=== PATIENT | male | born 1970 | race African-American/Black ===

== ENCOUNTER → 2019-05-14 | Outpatient (CLI) | payer OTHER | LOC: YHH 12:23 ==

== ENCOUNTER 2020-03-14 14:07 | Emergency (ER) | payer OTHER ==
[2020-03-14 14:14] VITALS: BP 110/75; PULSE 84; BMI 22.0
== END 2020-03-14 14:54 | disposition home or self-care (01) ==
LOC: JERFT 14:07
DX: S62.616A Displaced fracture of proximal phalanx of right little finger, initial encounter for closed fracture (principal)
CPT/HCPCS: 99283-25

== ENCOUNTER 2023-11-22 10:47 | Inpatient (IN) | payer OTHER ==
[2023-11-22] MEDS ORDERED: ACETAMINOPHEN 500 MG TABLET (FP) ONE ×2 (11:57→18:03)
[2023-11-22 12:32] LABS: BASO % 0.1 % (0-2.0); EOS % 0.1 % (0-4.5); HEMATOCRIT 40.7 % (35.4-49); HEMOGLOBIN 14.1 GM/dL (11.7-16.9); LYMPH % 6.6 % (8-40); MCH 31.1 pg (25.7-33.7); MCHC 34.5 g/dl (32.0-35.9); MEAN CELL VOLUME 90.2 fl (80-96); MONO % 12.2 % (3.8-10.2); PLATELET COUNT 268 10^3/uL (134-434); RBC 4.52 M/mm3 (4.00-5.60); RDW 12.9 % (11.9-15.9)
[2023-11-22] MEDS: SODIUM CHLORIDE 0.9% 500 ML INFUS.BAG IV ONE (12:32)
[2023-11-22] MEDS: ACETAMINOPHEN 500 MG TABLET (FP) PO ONE (12:32)
[2023-11-22 12:47] LABS: POTASSIUM 3.1 mmol/L (3.5-5.1)
[2023-11-22 12:52] LABS: CALCIUM 8.7 mg/dL (8.5-10.1)
[2023-11-22 12:53] LABS: ALBUMIN 2.8 g/dl (3.4-5.0); BLOOD UREA NITROGEN 10.4 mg/dL (7-18)
[2023-11-22 12:55] LABS: TOT PROT 7.4 g/dl (6.4-8.2)
[2023-11-22 12:56] LABS: CREATININE 0.8 mg/dL (0.55-1.3)
[2023-11-22 12:57] LABS: BILIRUBIN,TOTAL 1.1 mg/dL (0.2-1)
[2023-11-22] MEDS ORDERED: CEFTRIAXONE 1 GM/50 ML BAG ONE (14:23)
[2023-11-22] MEDS ORDERED: AZITHROMYCIN IVPB 500 MG/250 ML BAG IVPB ONE (14:23)
[2023-11-22] MEDS: CEFTRIAXONE 1,000 MG in DEXTROSE 5%-WATER - 50 ML IVPB ONE (14:30)
[2023-11-22] MEDS: SODIUM CHLORIDE 1,000 ML IV SCH (14:30)
[2023-11-22] MEDS: AZITHROMYCIN IVPB 500 MG in DEXTROSE 5%-WATER - 250 ML IVPB ONE (14:31)
[2023-11-22 14:40] LABS: EPI CELLS >36 /uL (0-25.1); HYALINE CASTS 3 /uL (0-3.1); URINE APPEARANCE CLEAR; URINE BACTERIA 8 /uL (0-1359); URINE BILIRUBIN 1+ (NEGATIVE); URINE COLOR DK YELLOW; URINE GLUCOSE (UA) NEGATIVE (NEGATIVE); URINE KETONE 2+ (NEGATIVE); URINE LEUK ESTERASE TRACE (NEGATIVE); URINE NITRITE NEGATIVE (NEGATIVE); URINE PROTEIN 3+ (NEGATIVE); URINE RBC 28 /uL (0-23.9); URINE WBC 31 /uL (0-25.8)
[2023-11-22] MEDS: POTASSIUM CHLORIDE ORAL LIQUID 20 MEQ/15 ML PO ONE (15:39)
[2023-11-22] MEDS ORDERED: POTASSIUM CHLORIDE ORAL LIQUID 20 MEQ/15 ML ONE (15:39)
[2023-11-22] MEDS ORDERED: SULFAMETHOXAZOLE/TRIMETHOPRIM 800MG/160MG D.S. TABLET ONE (17:45)
[2023-11-22] MEDS ORDERED: methylPREDNISolone NA SUCC 40 MG/1 ML VIAL ONE ×2 (17:46→22:37)
[2023-11-22] MEDS: ACETAMINOPHEN 500 MG TABLET (FP) PO PRN (18:04)
[2023-11-22] MEDS: methylPREDNISolone NA SUCC 40 MG/1 ML VIAL IVPUSH SCH (18:04)
[2023-11-22] MEDS: TRIMETHOPRIM IVPB SCH (18:41)
[2023-11-22] MEDS: SULFAMETHOXAZOLE IVPB SCH (18:41)
[2023-11-22] MEDS: WATER IVPB SCH (18:41)
[2023-11-22] MEDS: DEXTROSE 5% IVPB SCH (18:41)
[2023-11-22] MEDS: SULFAMETHOXAZOLE/TRIMETHOPRIM 800MG/160MG D.S. TABLET PO SCH (22:53)
[2023-11-22] MEDS: SULFAMETHOXAZOLE 80 MG/TRIMETHOPRIM 16 MG/ML VIAL IVPB SCH (22:53)
[2023-11-23 07:10] LABS: BASO % 0.1 % (0-2.0); HEMATOCRIT 37.4 % (35.4-49); HEMOGLOBIN 12.7 GM/dL (11.7-16.9); LYMPH % 4.9 % (8-40); MCH 31.1 pg (25.7-33.7); MEAN CELL VOLUME 91.3 fl (80-96); MEAN PLT VOLUME 9.2 fl (7.5-11.1); PLATELET COUNT 294 10^3/uL (134-434); RBC 4.09 M/mm3 (4.00-5.60); RDW 12.5 % (11.9-15.9); WHITE BLOOD COUNT 8.8 K/mm3 (4.0-10.0)
[2023-11-23 07:51] LABS: POTASSIUM 3.4 mmol/L (3.5-5.1)
[2023-11-23 07:55] LABS: CALCIUM 8.2 mg/dL (8.5-10.1)
[2023-11-23 07:58] LABS: CREATININE 0.8 mg/dL (0.55-1.3)
[2023-11-23 08:00] LABS: BILIRUBIN,TOTAL 0.4 mg/dL (0.2-1); PHOSPHOROUS 1.7 mg/dL (2.5-4.9)
[2023-11-23 08:05] LABS: BLOOD UREA NITROGEN 7.8 mg/dL (7-18)
[2023-11-23 08:07] LABS: ALBUMIN 2.5 g/dl (3.4-5.0); MAGNESIUM 2.2 mg/dL (1.8-2.4)
[2023-11-23 08:14] LABS: TOT PROT 6.9 g/dl (6.4-8.2)
[2023-11-23 08:26] LABS: INR 1.17 (0.83-1.09); PROTHROMBIN TIME (PATIENT) 13.6 SEC (9.7-13.0)
[2023-11-23] MEDS ORDERED: ENOXAPARIN NA (PORCINE) 40 MG/0.4 ML DISP.SYRIN SQ ONE (09:40)
[2023-11-23] MEDS ORDERED: CEFTRIAXONE 1 GM/50 ML BAG ONE (09:40)
[2023-11-23] MEDS ORDERED: methylPREDNISolone NA SUCC 40 MG/1 ML VIAL ONE ×2 (09:40→21:31)
[2023-11-23] MEDS: ENOXAPARIN NA (PORCINE) 40 MG/0.4 ML DISP.SYRIN SQ SCH (09:59)
[2023-11-23] MEDS: CEFTRIAXONE 1 GM in DEXTROSE 5%-WATER - 50 ML IVPB SCH (10:00)
[2023-11-23] MEDS ORDERED: AZITHROMYCIN IVPB 500 MG/250 ML BAG IVPB ONE (10:31)
[2023-11-23] MEDS: AZITHROMYCIN IVPB 500 MG/250 ML BAG IVPB SCH (10:40)
[2023-11-23] MEDS ORDERED: PIPERACILLIN/TAZOB 4.5 GM 4.5 GM/100 ML BAG IVPB ONE (17:57)
[2023-11-23] MEDS: PIPERACILLIN/TAZOB 4.5 GM 4.5 GM in DEXTROSE 5%-WATER 100 ML IVPB SCH (18:12)
[2023-11-23] MEDS ORDERED: MELATONIN 5 MG TABLETS ONE (20:24)
[2023-11-23] MEDS: MELATONIN 1 MG TABLET PO PRN (20:27)
[2023-11-23] MEDS ORDERED: hydrOXYzine PAMOATE 25 MG CAPSULE (FP) PO ONE (21:30)
[2023-11-23] MEDS ORDERED: NAPH,MB-DB/K PH,MBDB POWDER PACKET ONE (21:30)
[2023-11-23] MEDS: NAPH,MB-DB/K PH,MBDB POWDER PACKET PO SCH (21:36)
[2023-11-23] MEDS: hydrOXYzine PAMOATE 25 MG CAPSULE (FP) PO ONE (21:37)
[2023-11-24] MEDS ORDERED: PIPERACILLIN/TAZOB 4.5 GM 4.5 GM/100 ML BAG IVPB ONE ×2 (03:02→08:11)
[2023-11-24 07:18] LABS: HEMOGLOBIN 12.7 GM/dL (11.7-16.9); MCH 31.3 pg (25.7-33.7); MCHC 34.4 g/dl (32.0-35.9); MEAN CELL VOLUME 90.9 fl (80-96); MEAN PLT VOLUME 8.8 fl (7.5-11.1); PLATELET COUNT 389 10^3/uL (134-434); RBC 4.07 M/mm3 (4.00-5.60); RDW 12.9 % (11.9-15.9); WHITE BLOOD COUNT 16.3 K/mm3 (4.0-10.0)
[2023-11-24 08:03] LABS: POTASSIUM 3.2 mmol/L (3.5-5.1)
[2023-11-24 08:06] LABS: ALBUMIN 2.5 g/dl (3.4-5.0); BLOOD UREA NITROGEN 6.5 mg/dL (7-18)
[2023-11-24 08:09] LABS: CREATININE 0.9 mg/dL (0.55-1.3)
[2023-11-24 08:11] LABS: BILIRUBIN,TOTAL 0.4 mg/dL (0.2-1); TOT PROT 6.7 g/dl (6.4-8.2)
[2023-11-24] MEDS ORDERED: methylPREDNISolone NA SUCC 40 MG/1 ML VIAL ONE (08:11)
[2023-11-24] MEDS ORDERED: AZITHROMYCIN IVPB 500 MG/250 ML BAG IVPB ONE (08:11)
[2023-11-24 09:39] LABS: ANISOCYTOSIS 0; MACROCYTOSIS 0; OVALOCYTE 1+
[2023-11-24] MEDS ORDERED: PROPOFOL 20 ML ONE ×2 (11:33→12:10)
[2023-11-24] MEDS ORDERED: MIDAZOLAM HCL 2 MG/2 ML SINGLE DOSE VIAL ONE (11:33)
[2023-11-24] MEDS ORDERED: LACTATED RINGERS SOLUTION 1,000 ML IV SCH (13:00)
[2023-11-24] MEDS: ALBUTEROL SO4 0.083% IH SOL 2.5 MG/3 ML VIAL.NEB. NEB PRN (13:30)
[2023-11-24] MEDS ORDERED: ALBUTEROL SO4 0.083% IH SOL 2.5 MG/3 ML VIAL.NEB. NEB PRN (13:34)
[2023-11-24] MEDS ORDERED: MELATONIN 1 MG TABLET PO PRN (13:52)
[2023-11-24] MEDS ORDERED: SODIUM CHLORIDE 1,000 ML IV SCH (13:52)
[2023-11-24] MEDS ORDERED: ACETAMINOPHEN 500 MG TABLET (FP) PO PRN (13:52)
[2023-11-24] MEDS: PIPERACILLIN/TAZOB 4.5 GM 4.5 GM in DEXTROSE 5%-WATER 100 ML IVPB SCH (17:51)
[2023-11-24] MEDS ORDERED: PIPERACILLIN/TAZOB 4.5 GM 4.5 GM in DEXTROSE 5%-WATER 100 ML IVPB SCH (18:00)
[2023-11-24] MEDS: WATER IVPB SCH ×2 (20:00→21:48)
[2023-11-24] MEDS: SULFAMETHOXAZOLE IVPB SCH ×2 (20:00→21:48)
[2023-11-24] MEDS: DEXTROSE 5% IVPB SCH ×2 (20:00→21:48)
[2023-11-24] MEDS: TRIMETHOPRIM IVPB SCH ×2 (20:00→21:48)
[2023-11-24] MEDS ORDERED: methylPREDNISolone NA SUCC 40 MG/1 ML VIAL IVPUSH SCH (22:00)
[2023-11-24] MEDS: methylPREDNISolone NA SUCC 40 MG/1 ML VIAL IVPUSH SCH (22:18)
[2023-11-25 08:33] LABS: BASO % 0.1 % (0-2.0); HEMATOCRIT 33.1 % (35.4-49); HEMOGLOBIN 11.4 GM/dL (11.7-16.9); LYMPH % 2.3 % (8-40); MCH 31.1 pg (25.7-33.7); MCHC 34.6 g/dl (32.0-35.9); MEAN CELL VOLUME 90.1 fl (80-96); MEAN PLT VOLUME 8.8 fl (7.5-11.1); MONO % 7.2 % (3.8-10.2); NEUT % 90.4 % (42.8-82.8); PLATELET COUNT 387 10^3/uL (134-434); RBC 3.68 M/mm3 (4.00-5.60); RDW 12.8 % (11.9-15.9); WHITE BLOOD COUNT 15.7 K/mm3 (4.0-10.0)
[2023-11-25 08:56] LABS: ALBUMIN 2.3 g/dl (3.4-5.0); CALCIUM 8.4 mg/dL (8.5-10.1)
[2023-11-25 08:57] LABS: BLOOD UREA NITROGEN 5.3 mg/dL (7-18); MAGNESIUM 2.2 mg/dL (1.8-2.4)
[2023-11-25 08:59] LABS: PHOSPHOROUS 2.5 mg/dL (2.5-4.9)
[2023-11-25 09:01] LABS: BILIRUBIN,TOTAL 0.3 mg/dL (0.2-1); TOT PROT 5.9 g/dl (6.4-8.2)
[2023-11-25] MEDS: ENOXAPARIN NA (PORCINE) 40 MG/0.4 ML DISP.SYRIN SQ SCH (09:22)
[2023-11-25] MEDS: AZITHROMYCIN IVPB 500 MG/250 ML BAG IVPB SCH (09:45)
[2023-11-25] MEDS ORDERED: ENOXAPARIN NA (PORCINE) 40 MG/0.4 ML DISP.SYRIN SQ SCH (10:00)
[2023-11-25] MEDS ORDERED: AZITHROMYCIN IVPB 500 MG/250 ML BAG IVPB SCH (10:00)
[2023-11-25 16:24] VITALS: BMI 19.0
[2023-11-25] MEDS: ACETAMINOPHEN 500 MG TABLET (FP) PO PRN (22:56)
[2023-11-25] MEDS: MELATONIN 1 MG TABLET PO PRN (22:59)
[2023-11-26 09:07] LABS: HEMATOCRIT 36.4 % (35.4-49); MCH 30.1 pg (25.7-33.7); MCHC 32.9 g/dl (32.0-35.9); MEAN CELL VOLUME 91.7 fl (80-96); MEAN PLT VOLUME 8.4 fl (7.5-11.1); PLATELET COUNT 411 10^3/uL (134-434); RBC 3.97 M/mm3 (4.00-5.60); RDW 12.8 % (11.9-15.9); WHITE BLOOD COUNT 14.2 K/mm3 (4.0-10.0)
[2023-11-26 09:16] LABS: POTASSIUM 3.3 mmol/L (3.5-5.1)
[2023-11-26 09:19] LABS: ALBUMIN 2.2 g/dl (3.4-5.0); BLOOD UREA NITROGEN 9.7 mg/dL (7-18)
[2023-11-26 09:22] LABS: CREATININE 0.9 mg/dL (0.55-1.3)
[2023-11-26 09:24] LABS: BILIRUBIN,TOTAL 0.3 mg/dL (0.2-1); TOT PROT 6.2 g/dl (6.4-8.2)
[2023-11-26 09:59] LABS: ANISOCYTOSIS 0; MACROCYTOSIS 0
[2023-11-26] MEDS: NYSTATIN 500,000 UNITS/5 ML SUSPENSION PO SCH (17:26)
[2023-11-27 07:55] LABS: HEMATOCRIT 38.9 % (35.4-49); HEMOGLOBIN 12.7 GM/dL (11.7-16.9); MCH 29.9 pg (25.7-33.7); MCHC 32.6 g/dl (32.0-35.9); MEAN CELL VOLUME 91.8 fl (80-96); MEAN PLT VOLUME 8.6 fl (7.5-11.1); PLATELET COUNT 445 10^3/uL (134-434); RBC 4.23 M/mm3 (4.00-5.60); RDW 12.5 % (11.9-15.9)
[2023-11-27 08:20] LABS: POTASSIUM 3.5 mmol/L (3.5-5.1)
[2023-11-27 08:21] LABS: CALCIUM 9.1 mg/dL (8.5-10.1)
[2023-11-27 08:22] LABS: BLOOD UREA NITROGEN 10.9 mg/dL (7-18)
[2023-11-27 08:25] LABS: CREATININE 0.9 mg/dL (0.55-1.3)
[2023-11-27 09:35] LABS: ANISOCYTOSIS 0; HELMET CELLS 0; HOWELL-JOLLY BODIES 0; MACROCYTOSIS 0; OVALOCYTE 0; ROULEAU 0; SICKELED CELLS 0; TARGET CELLS 0; TEAR DROP CELLS 0; TOXIC GRANULATION 0
[2023-11-27] MEDS: SULFAMETHOXAZOLE/TRIMETHOPRIM 800MG/160MG D.S. TABLET PO SCH (10:05)
[2023-11-28 07:31] LABS: HEMATOCRIT 39.9 % (35.4-49); HEMOGLOBIN 13.5 GM/dL (11.7-16.9); MEAN CELL VOLUME 91.3 fl (80-96); MEAN PLT VOLUME 7.9 fl (7.5-11.1); PLATELET COUNT 434 10^3/uL (134-434); RBC 4.37 M/mm3 (4.00-5.60); RDW 12.7 % (11.9-15.9); WHITE BLOOD COUNT 9.8 K/mm3 (4.0-10.0)
[2023-11-28 07:40] LABS: CHLORIDE 92 mmol/L (98-107); SODIUM 135 mmol/L (136-145)
[2023-11-28 08:09] LABS: CALCIUM 8.9 mg/dL (8.5-10.1)
[2023-11-28 08:10] LABS: ALBUMIN 2.6 g/dl (3.4-5.0); BLOOD UREA NITROGEN 11.6 mg/dL (7-18); CO2 34 mmol/L (21-32); GLUCOSE,RANDOM 89 mg/dL (74-106)
[2023-11-28 08:11] LABS: CREATININE 0.9 mg/dL (0.55-1.3)
[2023-11-28 08:13] LABS: SGOT/AST 22 U/L (15-37); SGPT/ALT 35 U/L (13-61)
[2023-11-28 08:14] LABS: ALK PHOS 64 U/L (45-117)
[2023-11-28 08:15] LABS: BILIRUBIN,TOTAL 0.6 mg/dL (0.2-1); TOT PROT 6.5 g/dl (6.4-8.2)
[2023-11-28 08:17] LABS: ANION GAP 9 mmol/L (4-13); POTASSIUM 2.9 mmol/L (3.5-5.1)
[2023-11-28] MEDS: KCL 10 MEQ IVPB 10 MEQ/100 ML INFUS.BAG IVPB SCH (11:56)
[2023-11-28] MEDS: D5-1/2NS+40 MEQ KCL - 40 MEQ/1,000 ML INFUS.BAG IV SCH (13:01)
[2023-11-28] MEDS: predniSONE 20 MG TABLET (UD) PO SCH (15:10)
[2023-11-28 15:54] LABS: CHLORIDE 89 mmol/L (98-107); SODIUM 132 mmol/L (136-145)
[2023-11-28 15:57] LABS: BLOOD UREA NITROGEN 11.1 mg/dL (7-18); CO2 37 mmol/L (21-32); GLUCOSE,RANDOM 143 mg/dL (74-106)
[2023-11-28 16:00] LABS: ANION GAP 6 mmol/L (4-13); CREATININE 1.1 mg/dL (0.55-1.3); POTASSIUM 2.9 mmol/L (3.5-5.1)
[2023-11-28] MEDS: BUDESONIDE/FORMETEROL FUMARATE 160/4.5 mcg INHALER IH SCH (21:48)
[2023-11-28 21:50] LABS: POTASSIUM 3.6 mmol/L (3.5-5.1)
[2023-11-28 21:51] LABS: CALCIUM 9.1 mg/dL (8.5-10.1)
[2023-11-28 21:52] LABS: BLOOD UREA NITROGEN 10.6 mg/dL (7-18)
[2023-11-28 21:55] LABS: CREATININE 1.1 mg/dL (0.55-1.3)
[2023-11-29 08:05] LABS: HEMATOCRIT 41.8 % (35.4-49); MCH 30.8 pg (25.7-33.7); MCHC 33.6 g/dl (32.0-35.9); MEAN CELL VOLUME 91.7 fl (80-96); MEAN PLT VOLUME 7.6 fl (7.5-11.1); PLATELET COUNT 425 10^3/uL (134-434); RBC 4.56 M/mm3 (4.00-5.60); RDW 12.8 % (11.9-15.9); WHITE BLOOD COUNT 10.4 K/mm3 (4.0-10.0)
[2023-11-29 08:34] LABS: POTASSIUM 3.4 mmol/L (3.5-5.1)
[2023-11-29 08:42] LABS: ALBUMIN 2.7 g/dl (3.4-5.0); CALCIUM 9.2 mg/dL (8.5-10.1); MAGNESIUM 2.2 mg/dL (1.8-2.4)
[2023-11-29 08:43] LABS: BLOOD UREA NITROGEN 8.4 mg/dL (7-18)
[2023-11-29 08:46] LABS: CREATININE 0.9 mg/dL (0.55-1.3); PHOSPHOROUS 1.9 mg/dL (2.5-4.9)
[2023-11-29 08:47] LABS: BILIRUBIN,TOTAL 0.6 mg/dL (0.2-1); TOT PROT 6.8 g/dl (6.4-8.2)
[2023-11-29] MEDS: POTASSIUM CHLORIDE ORAL LIQUID 20 MEQ/15 ML PO ONE (11:51)
[2023-11-29] MEDS: NAPH,MB-DB/K PH,MBDB POWDER PACKET PO ONE (11:51)
[2023-11-29] MEDS: BICTEGRAV/EMTRICIT/TENOFOV (BIKTARVY) 50-200-25 MG TABLET PO SCH (13:13)
[2023-11-29 14:57] VITALS: RESP 20
[2023-11-29] MEDS: guaiFENesin 200 MG/10 ML 10 ML UNIT-DOSE CUPS PO ONE (23:01)
[2023-11-30 05:39] VITALS: BP 136/80; PULSE 86; TEMP 99.3
[2023-11-30 07:37] LABS: HEMATOCRIT 40.7 % (35.4-49); HEMOGLOBIN 13.5 GM/dL (11.7-16.9); MCH 30.4 pg (25.7-33.7); MCHC 33.2 g/dl (32.0-35.9); MEAN CELL VOLUME 91.6 fl (80-96); MEAN PLT VOLUME 7.8 fl (7.5-11.1); PLATELET COUNT 419 10^3/uL (134-434); RBC 4.44 M/mm3 (4.00-5.60); RDW 12.5 % (11.9-15.9); WHITE BLOOD COUNT 14.7 K/mm3 (4.0-10.0)
[2023-11-30 07:48] LABS: POTASSIUM 3.4 mmol/L (3.5-5.1)
[2023-11-30 08:16] LABS: ALBUMIN 2.9 g/dl (3.4-5.0); BLOOD UREA NITROGEN 9.8 mg/dL (7-18); CALCIUM 9.4 mg/dL (8.5-10.1)
[2023-11-30 08:19] LABS: CREATININE 0.9 mg/dL (0.55-1.3); PHOSPHOROUS 2.1 mg/dL (2.5-4.9)
[2023-11-30 08:20] LABS: BILIRUBIN,TOTAL 0.5 mg/dL (0.2-1); TOT PROT 6.7 g/dl (6.4-8.2)
[2023-11-30] MEDS: FLUCONAZOLE 100 MG TABLET (UD) PO SCH (11:05)
[2023-11-30] MEDS ORDERED: POTASSIUM CHLORIDE ORAL LIQUID 20 MEQ/15 ML PO ONE (11:53)
== END 2023-11-30 13:48 | disposition left against medical advice (07) | DRG 890 ==
LOC: JER 10:47 → JERBED 13:42 → J4W 11-24 17:37
PROVIDERS: ADMIT Internal Medicine; ATTEND Internal Medicine
PROC: 0B9F8ZX Drainage of Right Lower Lung Lobe, Via Natural or Artificial Opening Endoscopic, Diagnostic (ICD-10-PCS; 2023-11-24)
PROC: 0B9C8ZX Drainage of Right Upper Lung Lobe, Via Natural or Artificial Opening Endoscopic, Diagnostic (ICD-10-PCS; 2023-11-24)
PROC: 0B9D8ZX Drainage of Right Middle Lung Lobe, Via Natural or Artificial Opening Endoscopic, Diagnostic (ICD-10-PCS; 2023-11-24)
PROC: 0BD68ZX Extraction of Right Lower Lobe Bronchus, Via Natural or Artificial Opening Endoscopic, Diagnostic (ICD-10-PCS; principal; 2023-11-24 11:30)
DX: A41.89 Other specified sepsis (principal); J18.9 Pneumonia, unspecified organism; B20 Human immunodeficiency virus [HIV] disease; R09.02 Hypoxemia; E44.0 Moderate protein-calorie malnutrition; Z68.1 Body mass index [BMI] 19.9 or less, adult; E87.6 Hypokalemia; R64 Cachexia; B59 Pneumocystosis; R19.7 Diarrhea, unspecified; B37.0 Candidal stomatitis; Z22.322 Carrier or suspected carrier of Methicillin resistant Staphylococcus aureus
CPT/HCPCS: 0241U-QW; 36415; 71045-TC-FY; 71250-TC; 76000-TC-FY; 80048; 80053; 81003; 83605; 83615; 83735; 84100; 85025; 85027; 85610; 86359; 86360; 86480; 87040; 87045; 87046; 87081; 87116; 87206; 87278; 87281; 87305; 87324; 87328; 87329; 87449; 87633; 87899; 88108; 88305-TC; 93005; 93010; 94640; 94760; 97116-GP; 97162-GP; 99285-25